=== PATIENT | male | born 1995 | race Caucasian/White ===

== ENCOUNTER → 2017-10-17 11:20 | Outpatient (REF) | payer OTHER, SELFPAY ==
[2017-10-17 18:42] LABS: Basophils # 0.1 K/mm3 (0-0.2); Basophils % 0.4 % (0.1-2.0); Eosinophils # 0.4 K/mm3 (0.0-0.4); Eosinophils % 3.7 % (0.1-12.0); Hematocrit 45.4 % (42.0-52.0); Hemoglobin 14.8 g/dL (14.1-18.0); Lymphocytes # 3.1 K/mm3 (0.7-4.5); Lymphocytes % 29.1 K/mm3 (10-50); Mean Corpuscular HGB Conc 32.7 g/dL (31.8-35.4); Mean Corpuscular Hemoglobin 29.6 pg (27.0-31.2); Mean Corpuscular Volume 90.5 fl (80-94); Mean Platelet Volume 8.4 fl (7.4-10.4); Monocytes # 0.6 K/mm3 (0.1-1.0); Monocytes % 5.9 % (1.7-9.3); Neutrophils # 6.4 K/mm3 (1.8-7.8); Neutrophils % 60.8 % (37.0-80.0); Platelet Count 373 K/mm3 (142-424); Red Blood Count 5.01 M/mm3 (4.60-6.20); Red Cell Distribution Width 13.6 % (11.5-17.5); White Blood Count 10.5 K/mm3 (4.8-10.8)
[2017-10-17 19:01] LABS: Alanine Aminotransferase 42 U/L (12-78); Albumin Level 4.5 gm/dL (3.4-5.0); Albumin/Globulin Ratio 1.4 (1.1-1.8); Alkaline Phosphatase 71 U/L (46-116); Anion Gap 12.5 mEq/L (5-15); Aspartate Amino Transferase 14 U/L (15-37); Bilirubin,Total 0.4 mg/dL (0.2-1.0); Blood Urea Nitrogen 12 mg/dL (7-18); Calcium 9.3 mg/dL (8.5-10.1); Carbon Dioxide 30 mmol/L (21.0-32.0); Chloride 104 mmol/L (98-107); Chol/HDL Ratio 4.8 (1-3.5); Cholesterol 179 mg/dL (140-200); Creatinine,Serum 1.17 mg/dL (0.70-1.30); Estimated Glomerular Filt Rate 79 ml/min (>60); GFR (African American) 95 ML/MIN (>60); Globulin 3.3 gm/dl (1.3-3.2); Glucose 95 mg/dL (74-106); HDL Cholesterol 37 mg/dL (27-67); LDL Cholesterol 124 mg/dL (0-130); Potassium 4.5 mmoL/L (3.5-5.1); Sodium 142 mmol/L (136-145); T4 (Thyroxine) 4.8 ug/dl (4.7-13.3); Thyroid Stimulating Hormone 0.41 uIU/ml (0.358-3.740); Total Protein,Serum 7.8 gm/dL (6.4-8.2); Triglycerides 89 mg/dL (30-200); VLDL Cholesterol 18 mg/dL (0-40)
[2017-10-19 14:52] LABS: Vitamin D 25 Hydroxy 25.3 ng/mL (30.0-100.0)
== END ==
LOC: LAB 11:20
PROVIDERS: Visit Provider Physician Assistant
DX: R20.0 Anesthesia of skin (principal); R03.0 Elevated blood-pressure reading, without diagnosis of hypertension
CPT/HCPCS: 80053; 80061; 82652; 84436; 84443; 85025

== ENCOUNTER → 2018-06-02 16:49 | Outpatient (CLI) | payer OTHER, SELFPAY ==
[2018-06-02 17:22] LABS: Basophils % 0.4 % (0.1-2.0); Eosinophils # 0.5 K/mm3 (0.0-0.4); Eosinophils % 5.6 % (0.1-12.0); Hematocrit 44.9 % (42.0-52.0); Lymphocytes # 2.6 K/mm3 (0.7-4.5); Lymphocytes % 28.8 % (10-50); Mean Corpuscular HGB Conc 33.4 g/dL (31.8-35.4); Mean Corpuscular Hemoglobin 30.2 pg (27.0-31.2); Mean Corpuscular Volume 90.6 fl (80-94); Mean Platelet Volume 8.2 fl (7.4-10.4); Monocytes # 0.5 K/mm3 (0.1-1.0); Monocytes % 5.9 % (1.7-9.3); Neutrophils # 5.4 K/mm3 (1.8-7.8); Neutrophils % 59.3 % (37.0-80.0); Platelet Count 362 K/mm3 (142-424); Red Blood Count 4.96 M/mm3 (4.60-6.20); Red Cell Distribution Width 12.9 % (11.5-17.5)
[2018-06-02 17:59] LABS: Alanine Aminotransferase 54 U/L (12-78); Albumin Level 4.5 gm/dL (3.4-5.0); Albumin/Globulin Ratio 1.3 (1.1-1.8); Alkaline Phosphatase 84 U/L (46-116); Anion Gap 14.3 mEq/L (5-15); Aspartate Amino Transferase 29 U/L (15-37); Bilirubin,Total 0.6 mg/dL (0.2-1.0); Blood Urea Nitrogen 12 mg/dL (7-18); Calcium 9.4 mg/dL (8.5-10.1); Carbon Dioxide 28 mmol/L (21.0-32.0); Chloride 105 mmol/L (98-107); Chol/HDL Ratio 4.2 (1-3.5); Cholesterol 180 mg/dL (140-200); Creatinine,Serum 1.16 mg/dL (0.70-1.30); Estimated Glomerular Filt Rate 79 ml/min (>60); GFR (African American) 95 ML/MIN (>60); Globulin 3.5 gm/dl (1.3-3.2); Glucose 105 mg/dL (74-106); HDL Cholesterol 43 mg/dL (27-67); LDL Cholesterol 123 mg/dL (0-130); Potassium 4.3 mmoL/L (3.5-5.1); Sodium 143 mmol/L (136-145); T4 (Thyroxine) 4.6 ug/dl (4.7-13.3); Thyroid Stimulating Hormone 0.21 uIU/ml (0.358-3.740); Triglycerides 72 mg/dL (30-200); VLDL Cholesterol 14 mg/dL (0-40)
[2018-06-05 08:56] LABS: Vitamin D 25 Hydroxy 21.6 ng/mL (30.0-100.0)
== END ==
PROVIDERS: Visit Provider Nurse Practitioner Family
DX: R69 Illness, unspecified (principal); R09.89 Other specified symptoms and signs involving the circulatory and respiratory systems; R06.02 Shortness of breath; R05 Cough; R51 Headache; J30.9 Allergic rhinitis, unspecified; E66.9 Obesity, unspecified; Z72.0 Tobacco use
CPT/HCPCS: 80053; 80061; 82652; 84436; 84443; 85025

== ENCOUNTER 2018-06-09 08:38 | Emergency (ER) | payer OTHER, SELFPAY ==
[2018-06-09 08:45] VITALS: BP 149/91; PULSE 85; RESP 22; TEMP 37.3; O2SAT 98; BMI 46.8
--- NOTE | 2018-06-09 08:54 | HMH.EDGENADL ---
ED Disposition Clinical Impression: Thoracic compression fracture Qualifiers: Encounter type: initial encounter Fracture type: closed Qualified Code(s): S22.000A - Wedge compression fracture of unspecified thoracic vertebra, initial encounter for closed fracture Disposition: Home, Self-Care Condition on Discharge: Fair Instructions: DI for Vertebral Fracture, Vertebral Compression Fracture Additional Instructions: Off work until seen by orthopedics. Follow-up with Dr. Ahumada in [place]. Call today to make appointment to be seen within 1 week. Additional instructions for BACK PAIN: Return immediately if back pain becomes intolerable, or if fever, numbness or weakness of your legs, loss of control of your bowels or bladder. Additional instructions for CONTROLLED SUBSTANCES: You have been prescribed a medication that is a controlled substance. Controlled substances include pain medications known as opiates and sedative nerve medications known as benzodiazepines. Tramadol and gabapentin are also controlled substances. Some common opiates include: Codeine (such as Tylenol #3) Hydrocodone (Vicodin, Lortab, Lorcet, Driscoll) Oxycodone (Percocet, Percodan, Oxycodone, Oxy IR) Some common benzodiazepines include: Diazepam (Valium) Lorazepam (Ativan) Alprazolam (Xanax) Clonazepam (Klonopin) Oxazepam (Serax) All of these controlled substances are highly addictive and frequently abused. Misuse can and frequently does lead to addiction as well as overdose and . Medication should be stored in a locked cabinet or other secure storage unit. Do not store the medication in a motor vehicle. Short term supplies, 3 days or less, are prescribed because of the highly addictive nature of the medication. Any of the controlled substance medication NOT taken should be disposed of properly and NOT SAVED. The recommended method of disposing of unused medications is: Place the medicines in a sealable plastic bag. If the medicine is a solid, crush it or add water to dissolve it. Add something undesirable (cat litter, coffee grounds, etc.) Dispose of sealed bag in household trash Do not flush or pour unused medicines down a sink or drain. Controlled substances should not be shared, given away or sold. Because of the addictive nature and frequent abuse, these medications are sometimes stolen. These medications should be kept in a safe place where they cannot be stolen. Do not keep them in your car or purse. Lost or stolen prescriptions for controlled substances WILL NOT BE REFILLED in this emergency department, regardless of whether a police report was filed. Prescriptions: Oxycodone HCl/Acetaminophen [Percocet 5/325mg tablet] 1 tab PO Q6HP PRN #20 tab PRN Reason: Moderate To Severe Pain Ondansetron [Zofran 4mg ODT] 4 mg PO TIDP PRN #15 tab.rapdis PRN Reason: Nausea And Vomiting Referrals: Cecelia Acosta PA [Primary Care Provider] - Eduardo Ahumada [Referring] - (call for appointment) Forms: Work/School Release - Critical Care Critical Care Time: No Attestation: On , the high probability of a clinically significant, sudden or life threatening deterioration of the following system(s) required my full and direct attention, intervention and personal management. The time I documented below is in addition to time spent performing reported procedures but includes the following listed in this critical care notation. Medical Decision Making - Mundo Inquiry Pt receiving controlled substance: Yes Mundo was queried for this patient: Yes Reference #:: [id number] Risks and benefits of using a controlled substance: were discussed with pt by me Comment: 0 rxs. Vital Signs: 06/09/18 08:45 06/09/18 09:04 06/09/18 09:50 Temperature 99.2 F Temperature Source Oral Pulse Rate [Left Radial] 85 83 83 Respiratory Rate 22 Blood Pressure [Right Arm] 149/91 H 153/92 H 156/97 H Blood Pressure Mean [Right Arm] 110 1
--- NOTE | 2018-06-09 08:57 | CT_ITS ---
CT Lumbar Spine wo con, CT Thoracic Spine wo con INDICATION: Lumbar pain. & Thoracic pain ITS.REASON: fall, injury. ORDERING PHYSICIAN: Ashwin Breaux MD PATIENT AGE: 22 years COMPARISON: CTA chest December 2015 TECHNIQUE: No oral nor IV contrast utilized Axial images obtained through the lumbar spine and thoracic spine-thickened axial images along with with sagittal and coronal reformats on CT workstation. . All CT scans at the facility use one or more dose reduction, viz: automated exposure control, ma/kV adjustment per patient size (including targeted exams where dose is matched to indication, i.e. head), or iterative reconstruction technique. CT THORACIC SPINE . wedge compression fracture involving the superior endplate at T12, with approximate -25% loss of height anteriorly overall.. The superior endplate compression is fairly diffuse perhaps slightly more evident to the right. A somewhat indeterminate by CT but favor recent or acute if focally tender here. No retropulsion The gradual kyphosis at the thoracic spine becomes slightly exaggerate this level due to this wedge compression fracture. No paraspinal hematoma. However there is slight hazy appearance towards the neural foramen bilaterally which could reflect some minor edematous changes possibly. There is some borderline narrowing at the posterior aspect of T11/12 disc space as well as T12/L1 but no associated disc protrusion evident. . The remaining thoracic vertebral bodies appear intact no additional compression fractures. No superior endplate irregularity of the cavity. No retropulsion. The thoracic spinal canal appears satisfactory. Images include the lowermost cervical spine which is unremarkable Facet joints appear intact on a question. Only question of some early sclerosis at facets at lower most T-spine. . Aorta normal caliber. Lungs adjacent to the spine unremarkable. CT LUMBAR SPINE The wedge compression fracture at T12 again noted as described above Borderline narrowing at posterior L1/2 disc space L2 vertebra:Slight superior endplate cavity at L2 most likely normal configuration and debris was seen previously CT L2/3, L3/4 disc intact unremarkable and neural foramen widely patent. L4/5. Mild diffuse disc bulge which is slightly more evident left paracentral. Developing ligamentum flavum and facet hypertrophy.. Features together yield/mild narrowing of the central canal. With Borderline spinal stenosis L5/S1. Eccentric disc bulge most evident towards the left foramen. Mild foraminal encroachment most evident to the left.. Remaining lumbar vertebral bodies appear to be intact. . Previous CTA showed a low-density cyst at right kidney anterior superior right kidney. This is vaguely evident on today's lumbar study measuring 2 cm diameter with upper normal density at its inferior aspect. May benefit from follow-up ultrasound within a few months but in this young age by far most likely is merely a benign cyst -------IMPRESSION-/SUMMARY ----THORACIC SPINE:----- 1. Wedge compression fracture T12 .Superior endplate compression with Up to 25% % loss of height anteriorly. .No retropulsion. Thoracic canal satisfactory at this level .Age-indeterminate by CT but overall suspect recent-if focal pain at this level . . Remainder of the thoracic spine unremarkable. -----LUMBAR SPINE---- . Lumbar vertebral bodies are intact with no acute findings. L4/5. Mild Diffuse disc bulge. Mild posterior element hypertrophy. Borderline spinal stenosis L5/S1. Eccentric mild disc bulge towards left foramen. Mild foraminal encroachment bilaterally most evident to the left foramen. Other Observations: ... 2 cm right renal cyst incidentally noted. Likely
[2018-06-09 09:04] VITALS: BP 153/92; PULSE 83; O2SAT 98
--- NOTE | 2018-06-09 09:04 | PC.NURSE ---
family at bedside
--- NOTE | 2018-06-09 09:26 | PC.NURSE ---
pt gone to xray
--- NOTE | 2018-06-09 09:49 | PC.NURSE ---
pt back from xray . reporting pain worse since laying on ct table
[2018-06-09 09:50] VITALS: BP 156/97; PULSE 83; O2SAT 96
[2018-06-09 10:00] VITALS: BP 164/81; PULSE 79
--- NOTE | 2018-06-09 10:17 | PC.NURSE ---
JENNIFER KOVACS speaking with Dr. Sherman
[2018-06-09 10:53] VITALS: BP 163/89; PULSE 88; RESP 20; TEMP 37.2; O2SAT 98
== END 2018-06-09 10:55 | disposition home or self-care (01) ==
PROVIDERS: Emergency Provider Emergency Medicine; PCP Physician Assistant
DX: S22.000A Wedge compression fracture of unspecified thoracic vertebra, initial encounter for closed fracture (principal); F17.210 Nicotine dependence, cigarettes, uncomplicated; W01.0XXA Fall on same level from slipping, tripping and stumbling without subsequent striking against object, initial encounter; Y92.69 Other specified industrial and construction area as the place of occurrence of the external cause; Y99.0 Civilian activity done for income or pay
CPT/HCPCS: 72128; 72131; 96372; 99283; J2405

== ENCOUNTER 2022-06-20 16:19 | Emergency (ER) | payer OTHER, SELFPAY ==
[2022-06-20 16:40] VITALS: BP 141/86; PULSE 93; RESP 21; TEMP 36.8; O2SAT 100; BMI 48.6
[2022-06-20 16:43] LABS: Apearance,Urine Clear (Clear); Bilirubin,Urine Negative (Negative); Blood, Urine Negative (Negative); Color,Urine Yellow (Yellow); Glucose,Urine (UA) Negative (Negative); Ketones,Urine Negative (Negative); Protein,Urine Negative (Negative); Specific Gravity, Urine 1.025 (1.005-1.030); UTC Leukocyte Esterase,Urine Negative (Negative); UTC Nitrate,Urine Negative (Negative); Urobilinogen,Urine 0.2 EU/dl (0.2)
--- NOTE | 2022-06-20 16:58 | EXP.UTC ---
Discharge Plan Disposition Patient Disposition: Home, Self-Care Condition: Good Prescriptions Prescriptions: New cyclobenzaprine 10 mg tablet 10 mg PO TID PRN (Reason: muscle spasm) Qty: 15 0RF Referrals Follow up/Referrals: Jazmin Acosta APRN [Primary Care Provider] - See instructions Activity Restrictions/Add. Instructions Additional Instructions/Restrictions: *Ibuprofen antonio 6 hours with meal as needed for pain/inflammation *Not additional anti-inflammatory like motrin, aleve, advil with the above amount of ibuprofen. You can still take Tylenol every 4 hours as needed if you need something else for pain *Ice 20 minutes every 2 hours for the first 48 hours after the initial injury followed by moist heat every 20 minutes 3-4 times a day to affected area *Muscle relaxer every 8 hours as needed for muscle spasms but remember, it WILL cause drowsiness You cannot take it and drive, operate machinery or care for small children. *Keep this area active, no movement leads to more stiffness, However take it easy and avoid heavy lifting pushing or pulling *Follow up with you family doctor if no improvement for further treatment Make sure to follow up if symptoms persist and immediately if any worsening of symptoms Clinical Impressions Clinical Impression: Low back pain Stand Alone Forms Stand Alone Forms: Work/School Release Instructions Patient Instructions: Low Back Pain, Cyclobenzaprine Discharge ED Provider: Michela Frank [facility] General Stated complaint: Possible kidney stone Mode of Arrival: Ambulatory Source of Information: Patient Limitations: No Limitations Time Seen by Provider: 06/20/22 16:58 Description of Symptoms (Recalled from Triage Doc. by RN): right side pain, and cloudy urine HEENT Symptoms (Recalled from RN notes): No Resp Symptoms (Recalled from RN notes): No Skin Symptoms (Recalled from RN notes): No MS Symptoms (Recalled from RN notes): No Functional Status (Recalled from RN notes): n/a History of Present Illness Provider Complaint: Patient states that for about 3 days he has been having pain in his right lower back area States that it is worse when he lays down and feels like it spasms up and certain ways he moves or lays States that he was worried he may have a kidney infection so he started drinking plenty of fluids and that didnt help States that he is not having any burning with urination and pain does not radiate States that he feels better after getting up and moving around States that he had kidney stone before but this feels different Related Data Previous Rx's Medication Instructions Recorded cyclobenzaprine 10 mg tablet 10 mg PO TID PRN muscle spasm #15 06/20/22 tabs Allergies Allergy/AdvReac Type Severity Reaction Status Date / Time No Known Allergies Allergy Verified 06/20/22 16:53 Worker's Comp Is this a Worker's Comp case?: No PFSH PFS Disclaimer: The information contained in this section may have been updated after the patient was seen, as this information can be updated by other users. Medical History (Updated 06/20/22 @ 17:09 by Michela Frank APRN) Depression Elevated BP without diagnosis of hypertension Vitamin D deficiency (~10/20/17) Social History Smoking Status: Current every day smoker tobacco type: cigarettes packs per day: 1 alcohol intake: never substance use type: denies use current occupational status: employed Travel in the last 8 weeks: None household members: family housing: house ROS Obtained: Yes All systems reviewed & no additional complaints except as documented and Yes Systems reviewed as appropriate & no additional complaints except as documented Eyes Eyes: Reports system reviewed and no additional complaints, except as documented and Reports as per HPI ENT Ears, Nose, Mouth, and Throat: Reports system reviewed and no additional complaints, except as documente
[2022-06-20 17:13] VITALS: BP 141/86; PULSE 93; RESP 21; TEMP 36.8; O2SAT 100
== END 2022-06-20 17:12 | disposition home or self-care (01) ==
PROVIDERS: Emergency Provider Nurse Practitioner; PCP Nurse Practitioner
DX: M54.59 Other low back pain (principal); M62.830 Muscle spasm of back; F17.210 Nicotine dependence, cigarettes, uncomplicated
CPT/HCPCS: 81003; 99212; 99214; G0463

== ENCOUNTER 2024-05-10 07:33 | Emergency (ER) | payer SELFPAY ==
[2024-05-10] VITALS (8 sets, daily range): BP systolic 140–184; BP diastolic 86–114; PULSE 84–104; RESP 16–20; TEMP 36.6; O2SAT 92–97; BMI 51.1
[2024-05-10 07:57] LABS: Basophils # 0.1 K/mm3 (0-0.2); Basophils % 0.8 % (0.1-2.0); Eosinophils # 0.5 K/mm3 (0.0-0.4); Eosinophils % 5.1 % (0.1-12.0); Hematocrit 43.3 % (42.0-52.0); Hemoglobin 14.6 g/dL (14.1-18.0); Lymphocytes % 29.7 % (10-50); Mean Corpuscular HGB Conc 33.7 g/dL (31.8-35.4); Mean Corpuscular Hemoglobin 29.9 pg (27.0-31.2); Mean Corpuscular Volume 88.7 fl (80-94); Mean Platelet Volume 10.1 fl (7.4-10.4); Monocytes # 0.8 K/mm3 (0.1-1.0); Monocytes % 7.8 % (1.7-9.3); Neutrophils # 5.8 K/mm3 (1.8-7.8); Neutrophils % 56.2 % (37.0-80.0); Platelet Count 378 K/mm3 (142-424); Red Blood Count 4.88 M/mm3 (4.60-6.20); Red Cell Distribution Width 12.8 % (11.5-17.5); White Blood Count 10.2 K/mm3 (4.8-10.8)
[2024-05-10 08:15] LABS: Alanine Aminotransferase 59 U/L (12-78); Albumin/Globulin Ratio 1.5 (1.1-1.8); Alkaline Phosphatase 60 U/L (38-126); Anion Gap 11.4 mEq/L (5-15); Aspartate Amino Transferase 34 U/L (17-59); Bilirubin,Total 0.5 mg/dl (0.2-1.3); Blood Urea Nitrogen 11 mg/dl (9-20); Calcium 10.1 mg/dl (8.4-10.2); Carbon Dioxide 29 mmol/L (22.0-30.0); Chloride 104 mmol/L (98-107); Creatinine Clearance Estimated 150 mL/min (50-200); Estimated Glomerular Filt Rate 100 ml/min (>60); GFR (African American) 122 ML/MIN (>60); Globulin 3.3 g/dL (1.3-3.2); Glucose 102 mg/dl (74-100); Lipase 211 U/L (23-300); Potassium 4.4 mmoL/L (3.5-5.1); Sodium 140 mmol/L (136-145); Total Protein,Serum 8.3 g/dl (6.3-8.2)
--- NOTE | 2024-05-10 08:17 | US_ITS ---
FINAL REPORT TECHNIQUE: Multiple transverse and longitudinal images CLINICAL HISTORY: RUQ pain COMPARISON: None FINDINGS: The gallbladder shows no wall thickening, distention or stone disease. No biliary ductal dilatation is appreciated. No fluid collections are seen. Limited portions of the right liver demonstrate fatty infiltration. Limited portions of the right kidney are unremarkable. IMPRESSION: Fatty infiltration of the liver without evidence of gallbladder distention or stone disease. Reviewed, Interpreted and Dictated by Enio Mckenna MD Transcribed by Ilda Tyler Authenticated and [facility]
--- NOTE | 2024-05-10 08:19 | PC.NURSE ---
call made to rad for US of gallbladder
--- NOTE | 2024-05-10 08:19 | HMH.EDGENADL ---
Discharge Plan Disposition Patient Disposition: Home, Self-Care Chief Complaint: Abdominal Pain Prescriptions Prescriptions: No Action cyclobenzaprine 10 mg tablet 10 mg PO TID PRN (Reason: muscle spasm) Qty: 15 0RF Referrals Follow up/Referrals: Provider,Referral, MD [Primary Care Provider] - See instructions Activity Restrictions/Add. Instructions Additional Instructions/Restrictions: At this time it was felt you are safe to be discharged home. If new or worsening symptoms please do not hesitate to return the emergency department. Please take your medications as prescribed and call and schedule an appoint with Dr. Rogers for your fatty liver and right upper quadrant abdominal pain. Clinical Impressions Clinical Impression: Abdominal pain, RUQ, Fatty infiltration of liver Instructions Patient Instructions: DI for Acute Abdominal Pain Print Language Print Language: Icelandic Discharge ED Provider: Daryn Hunt General Adult HPI General Chief complaint: Abdominal Pain Stated complaint: pain, upper R abd Time Seen by Provider: 05/10/24 08:13 Mode of Arrival: Ambulatory Source of Information: Patient Description of Symptoms (Recalled from ER Triage Doc. by RN): Patient with complaint of right upper quadrant pain for three days. Reports nausea and diarrhea as well. History of Present Illness HPI narrative: Patient is a 28-year-old male with no abdominal surgical history presents emergency department for evaluation of right upper quadrant abdominal pain. Onset was acute, over the last 72 hours, associated decreased p.o. intake and nausea, no vomiting. Last stool this morning. Right upper quadrant pain is worse with taking food so he has not eaten much. No other acute complaints at this time. Please note that above description of symptoms, in this electronic medical record under categorization of recalled from ER triage doctor by RN are reflective of an initial nursing assessment, however, is not reflective of my full history and physical exam that was personally taken and clarified. Consequentially, this preceding description of symptoms, which may include the patient's categorized chief complaint in the EMR, do not reflect my personal clinical impression, and the ultimate description of history of present illness and patient stated complaints should be deferred to this section of the note. Unless stated otherwise or congruent with this section of the note, additional signs, symptoms, or incongruence should be interpreted as inaccurate with my clinical impression. Related Data Previous Rx's ?Medication ?Instructions ?Recorded cyclobenzaprine 10 mg tablet 10 mg PO TID PRN muscle spasm #15 06/20/22 tabs Allergies Allergy/AdvReac Type Severity Reaction Status Date / Time pseudoephedrine (From Allergy Unknown Verified 05/10/24 07:42 Sudafed) allergy reaction [facility] Disclaimer: The information contained in this section may have been updated after the patient was seen, as this information can be updated by other users. Medical History (Updated 05/10/24 @ 10:20 by Daryn Hunt MD) Depression Vitamin D deficiency (~10/20/17) Elevated BP without diagnosis of hypertension Social History Smoking Status: Current every day smoker tobacco type: cigarettes packs per day: 1 alcohol intake: never substance use type: denies use current occupational status: employed Travel in the last 8 weeks: None household members: family housing: house Have you lived/traveled outside [place] in past 30 days?: No Contact w/someone who lives/traveled outside US past 30 days?: No Exposure to someone with infectious disease in past 14 days?: No Do you have a fever (greater than 100.4 F or 38 C)?: No Have you tested positive for COVID-19: No Exposed to someone with COVID-19 in past 14 days?: No Do you have a sore throat?: No Do you have a cough?: No Do you have any weakness?: No Do you have any diarrhea?: No Are you experiencing any unusual bleeding?: No Do you have any muscle aches/pain?: No Do you have any abdominal pain?: No Are you experiencing loss of taste or smell?: No Other Medical History Have you received the Flu Vaccine for this season: No Have you received the Pneumonia Vaccine: No ROS Obtained: Yes Systems reviewed as appropriate & no additional complaints except as documented Physical Exam General General appearance: alert and in no apparent distress Head Head exam: atraumatic and normocephalic Eye Eye exam: Present PERRL ENT ENT exam: Present mucous membranes moist Neck Neck exam: Present normal inspection Chest Chest inspection: Present normal inspection and symmetric chest wall rise Respiratory Respiratory exam: Present normal lung sounds bilaterally; Absent respiratory distress Cardiovascular Cardiovascular exam: Present regular rate and normal rhythm Abdominal Exam Abdominal exam: Present soft and tenderness (Right upper quadrant); Absent rebound or rigidity Extremities Exam Extremities exam: Present normal inspection Neurological Exam Neurological exam: Present alert Psychiatric Psychiatric exam: Present normal affect Skin Skin exam: Present warm and dry Medical Decision Making Medical Records Screening: Per USPSTF and CDC recommendations, given the prevalence of disease in our region, it is our hospital?s policy to screen for HIV and viral Hepatitis for all patients aged 18 and over and those with ongoing risk factors. Mundo Inquiry Pt receiving controlled substance: No Vital Signs: 05/10/24 07:38 05/10/24 07:39 05/10/24 08:00 Temperature 97.9 F Temperature Source Oral Pulse Rate 85 88 Pulse Rate [Radial] 89 Respiratory Rate 16 Blood Pressure 184/114 H 161/86 H Blood Pressure [Right Arm] 184/114 H Blood Pressure Mean Blood Pressure Mean [Right Arm] 137 Blood Pressure Source [Right Arm] Automatic Cuff Blood Pressure Position [Right Arm] Sitting 02 Sat by Pulse Oximetry 92 L 97 96 Oxygen Delivery Method Room Air Room Air Room Air 05/10/24 08:50 05/10/24 09:00 05/10/24 09:30 Temperature Temperature Source Pulse Rate 104 H 84 85 Pulse Rate [Radial] Respiratory Rate Blood Pressure 161/86 H 174/104 H 183/93 H Blood Pressure [Right Arm] Blood Pressure Mean Blood Pressure Mean [Right Arm] Blood Pressure Source [Right Arm] Blood Pressure Position [Right Arm] 02 Sat by Pulse Oximetry 95 95 93 L Oxygen Delivery Method Room Air Room Air 05/10/24 10:00 Temperature Temperature Source Pulse Rate 85 Pulse Rate [Radial] Respiratory Rate Blood Pressure 144/104 H Blood Pressure [Right Arm] Blood Pressure Mean 114 Blood Pressure Mean [Right Arm] Blood Pressure Source [Right Arm] Blood Pressure Position [Right Arm] 02 Sat by Pulse Oximetry 92 L Oxygen Delivery Method Lab Data Lab Results 05/10/24 07:49: WBC 10.2, RBC 4.88, Hgb 14.6, Hct 43.3, MCV 88.7, MCH 29.9, MCHC 33.7, RDW 12.8, Plt Count 378, MPV 10.1, Neut % (Auto) 56.2, Lymph % (Auto) 29.7, [place] % (Auto) 7.8, Eos % (Auto) 5.1, Baso % (Auto) 0.8, Neut # (Auto) 5.8, Lymph # (Auto) 3.0, [place] # (Auto) 0.8, Eos # (Auto) 0.5 H, Baso # (Auto) 0.1, Sodium 140, Potassium 4.4, Chloride 104, Carbon Dioxide 29, Anion Gap 11.4, BUN 11, Creatinine 0.90, Estimated Creat Clear 150, Estimated GFR 100, Est GFR ( Amer) 122, Glucose 102 H, Calcium 10.1, Total Bilirubin 0.5, AST 34, ALT 59, Alkaline Phosphatase 60, Total Protein 8.3 H, Albumin 5.0, Globulin 3.3 H, Albumin/Globulin Ratio 1.5, Lipase 211, HCV Ab KAMERON w/Rflx PCR Qn Negative 05/10/24 08:50: SARS-CoV-2 (PCR) Not detected, Influenza A Untype (PCR) Not detected, Influenza Type B (PCR) Not detected 05/10/24 07:49 05/10/24 07:49 Orders (Tests/Meds): ED MEDICATIONS Discontinued Medications Generic Name Dose Route Start Last Admin Trade Name Freq PRN Reason Stop Dose Admin Acetaminophen 1,000 mg 05/10/24 08:18 05/10/24 08:36 Acetaminophen 1,000mg/100ml Vial IV 05/10/24 08:19 1,000 mg ONCE ONE Administration Lactated Ringer's 500 mls @ 999 mls/hr 05/10/24 08:18 05/10/24 08:36 Lactated Ringer's 500ml IV 05/10/24 08:48 999 mls/hr .Q31M ONE Administration Iopamidol 75 ml 05/10/24 09:04 05/10/24 09:15 Iopamidol-370 (76%);100ml Bottle IV 05/10/24 09:05 75 ml ONCE ONE Administration Ketorolac Tromethamine 30 mg 05/10/24 08:18 05/10/24 08:36 Ketorolac 30mg/Ml Vial IV 05/10/24 08:19 30 mg ONCE ONE Administration Morphine Sulfate 4 mg 05/10/24 08:18 05/10/24 08:36 Morphine 4mg/Ml Syringe IV 05/10/24 08:19 4 mg ONCE ONE Administration Ondansetron HCl 4 mg 05/10/24 08:18 05/10/24 08:36 Ondansetron 4mg Odt SL 05/10/24 08:19 4 mg ONCE ONE Administration Sodium Chloride 10 ml 05/10/24 09:04 05/10/24 09:15 Sodium Chloride 0.9% 10ml Syr (Rad Only) IV 05/10/24 09:05 10 ml ONCE ONE Administration ORDERS Category Date Time Status CT abdomen pelvis w con Stat Cat Scan 05/10/24 08:51 Completed US RUQ [US abdomen limited] Stat Exams 05/10/24 08:17 Completed Complete Blood Count Auto Diff Stat Lab 05/10/24 07:49 Completed Comprehensive Metabolic Panel Stat Lab 05/10/24 07:49 Completed HIV Combo Stat Lab 05/10/24 07:49 Received Hepatitis C Ab Qual. W/ RFX Stat Lab 05/10/24 07:49 Completed Lipase Stat Lab 05/10/24 07:49 Completed Rapid PCR Covid and Flu A/B Stat Lab 05/10/24 08:50 Completed Urinalysis and Microscopic Stat Lab 05/10/24 09:38 Received Medical Decision Narrative: In summary patient is a 28-year-old male with no pertinent past medical history presents emergency department for evaluation of right upper quadrant abdominal pain and nausea. Patient is hemodynamically stable nontoxic-appearing upon arrival, afebrile. Tenderness in the right upper quadrant, no peritonitis on exam. Differential includes cholecystitis, symptomatic cholelithiasis, among others. Patient does not have any dysuria to suggest referred pain from urinary tract infection or ureterolithiasis. No cardiovascular risk factors or chest pain at age no concern for atypical ACS. Given this workup will be conducted with hematologic labs, urinalysis, right upper quadrant ultrasound. Initial interventions include Zofran, multimodal pain control, crystalloid bolus. Initial workup reviewed by me, hematologic labs are nonactionable no significant leukocytosis or anemia no LUZMARIA or critical electrolyte abnormality. Viral swab negative. Ultrasound and CT fatty changes of the liver without other acute findings. I viewed the CT imaging informally and talk to radiologist it appears that there was a hyperdensity in his proximal right ureter however this is just contrast excretion that is not a stone. Patient with p.o. trial with successful upon repeat evaluation was well-appearing. Given this patient's appropriate discharge at this time will be discharged with a course of Zofran and was given return precautions verbalized understanding will follow-up on an outpatient basis with Dr. Rogers. Critical Care Critical Care Time Critical Care Time: No
[2024-05-10] MEDS: ONDANSETRON 4MG ODT 4 MG SL (08:36)
[2024-05-10] MEDS: MORPHINE 4MG/ML SYRINGE 4 MG IV (08:36)
[2024-05-10] MEDS: KETOROLAC 30MG/ML VIAL 30 MG IV (08:36)
[2024-05-10] MEDS: ACETAMINOPHEN 1,000MG/100ML VIAL 1000 MG IV (08:36)
[2024-05-10] MEDS: RINGERS SOLUTION,LACTATED 500 ML 999 ML IV (08:36)
--- NOTE | 2024-05-10 08:51 | CT_ITS ---
FINAL REPORT TECHNIQUE: Oral and IV contrast enhanced exam This study was performed with techniques to keep radiation doses as low as reasonably achievable, (ALARA). Individualized dose reduction techniques using automated exposure control or adjustment of mA and/or kV according to the patient''s size were employed. CLINICAL HISTORY: RUQ pain FINDINGS: Abdomen: No acute density is seen within the lung bases. The gallbladder is unremarkable. There is severe fatty infiltration of the liver. The remaining solid abdominal organs are unremarkable. No bowel obstruction is present. There is no free air. No fluid collection is seen. There is no adenopathy. Pelvis: There is no evidence of appendicitis. No bowel wall thickening is present. There is no free fluid. No pelvic mass is seen. IMPRESSION: Fatty changes of liver. No acute findings. Reviewed, Interpreted and Dictated by Enio Mckenna MD Transcribed by Bhavani Lemus Authenticated and [facility]
[2024-05-10 08:55] LABS: Coronavirus 19, PCR Not Detected (NotDetected); Influenza A, PCR Not Detected (NotDetected); Influenza B, PCR Not Detected (NotDetected)
[2024-05-10] MEDS: IOPAMIDOL-370 (76%);100ML BOTTLE 75 ML IV (09:15)
[2024-05-10] MEDS: SODIUM CHLORIDE 0.9% 10ML SYR (RAD ONLY) 10 ML IV (09:15)
[2024-05-10 09:37] LABS: Hepatitis C Ab Qual. W/ RFX NEGATIVE (Negative)
[2024-05-10 09:45] LABS: Microscopic, Urine URINE MICROSCOPIC (MICROSCOPIC)
[2024-05-10 10:08] LABS: Appearance,Urine CLEAR (Clear); Bilirubin,Urine Negative (Negative); Blood, Urine Negative (Negative); Color,Urine YELLOW (Yellow); Glucose,Urine (UA) Negative (Negative); Ketones,Urine Negative (Negative); Leukocyte Esterase,Urine Negative (Negative); Nitrate,Urine Negative (Negative); Protein,Urine Negative (Negative); Specific Gravity, Urine 1.015 (1.005-1.030); Urobilinogen,Urine 0.2 EU/dl (0.2)
--- NOTE | 2024-05-10 10:18 | PC.NURSE ---
Took some water to this pt per Dr Hunt
[2024-05-10 10:28] LABS: Squamous Epithelial Cell,Urine Occasional #/hpf (0-5)
[2024-05-10 10:55] LABS: HIV Combo NEGATIVE (Negative)
== END 2024-05-10 10:23 | disposition home or self-care (01) ==
PROVIDERS: Emergency Provider Emergency Medicine
DX: K76.0 Fatty (change of) liver, not elsewhere classified (principal); R10.11 Right upper quadrant pain; R11.0 Nausea; R19.7 Diarrhea, unspecified; F17.210 Nicotine dependence, cigarettes, uncomplicated
CPT/HCPCS: 74177; 76705; 80053; 81001; 83690; 85025; 86803; 87389; 87636; 96361; 96374; 96375; 99284; J0131; J1885; J2270; J7120; Q0162; Q9967